=== PATIENT | male | born 1940 | race Caucasian/White ===

== ENCOUNTER 2020-05-19 06:57 | Emergency (ER) | payer MEDICARE, OTHER, SELFPAY ==
[2020-05-19] VITALS (28 sets, daily range): BP systolic 107–230; BP diastolic 54–94; PULSE 41–53; RESP 12–26; TEMP 36.6; O2SAT 92–99; BMI 26.4
--- NOTE | 2020-05-19 07:03 | DI.RAD.S_ITS ---
PROCEDURE: XR CHEST 1V INDICATIONS: chest pain TECHNIQUE: One view of the chest was acquired. COMPARISON: [facility], CR, XR CHEST 1 VIEW, 02/22/2019, 19:25. FINDINGS: Surgical changes and devices: None. 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 Lungs are otherwise clear without focal consolidation. No pleural effusions or pneumothorax. Mediastinum: Mediastinal contours appear normal. Heart size is normal. Bones and chest wall: No suspicious bony lesions. Overlying soft tissues appear unremarkable. IMPRESSION: Chest without acute cardiopulmonary abnormalities. No focal consolidations. 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 Dictated by: Dioni Velasco M.D. on 05/19/2020 at 7:47 Approved by: Dioni Velasco M.D. on 05/19/2020 at 7:52
[2020-05-19 07:12] LABS: Add Manual Diff / Slide Review NO; Basophils Absolute Auto 0 /uL (0-100); Basophils Percent Auto 0.3 % (0-2); Eosinophils Absolute Auto 0 /uL (0-450); Eosinophils Percent Auto 0.2 % (2-4); Hematocrit 39.4 % (41-53); Hemoglobin 13.1 g/dL (13.5-17.5); INR 1.3 (0.9-1.3); Lymphocytes Absolute Auto 1400 /uL (1100-4500); Lymphocytes Percent Auto 38.5 % (25-40); Mean Corpuscular HGB Conc 33.3 % (30-36); Mean Corpuscular Hemoglobin 29.2 PG (26-34); Mean Corpuscular Volume 87.7 fL (80-100); Monocytes Absolute Auto 1000 /uL (0-900); Monocytes Percent Auto 25.8 % (3-14); Neutrophils Absolute Auto 1300 /uL (1500-7000); Neutrophils Percent Auto 35.2 % (50-75); Platelet Count 191 X10^3/uL (150-400); Prothrombin Time 14.8 SECONDS (10.1-12.7); Red Blood Cell Count 4.49 X10^6/uL (4.5-5.9); Red Cell Distribution Width 14.7 % (11.6-14.8); White Blood Cell Count 3.7 X10^3/uL (4.5-11.0)
--- NOTE | 2020-05-19 07:12 | ED.CHESTPAIN ---
HPI - Chest Pain General Chief Complaint: Chest Pain Stated Complaint: Chest pain Time Seen by Provider: 05/19/20 06:58 Source: patient and EMS Mode of arrival: EMS Limitations: no limitations History of Present Illness HPI narrative: Patient is an 80-year-old male with history of coronary artery disease and hypertension who presents sharp left arm pain and chest pain. He says his arm will come up from his sleep around 3:00 a.m. it was quite intense than started radiating to his chest. He took nitro with EMS which helped his pain. He denies any shortness of breath no weakness. His most recent stent was in October 2019 in [facility]. he presented with shortness of breath and he could not see. MD complaint: chest pain Duration: constant and improved Onset: during rest Pain location: left chest Severity: moderate Quality: aching Relieving factors: nitroglycerin Related Data Home Medications Medication Instructions Recorded Confirmed aspirin [Adult Low Dose Aspirin] 81 mg PO DAILY 05/19/20 05/19/20 carvedilol 6.25 mg PO DAILY 05/19/20 05/19/20 clonidine HCl 0.3 mg PO Q8HR 05/19/20 05/19/20 ezetimibe 10 mg PO TID 05/19/20 05/19/20 famotidine 20 mg PO DAILY 05/19/20 05/19/20 hydralazine 25 mg PO PRN PRN 05/19/20 05/19/20 nitroglycerin [Nitrostat] 0.4 mg SUBLINGUAL PRN PRN 05/19/20 05/19/20 sotalol 80 mg PO BID 05/19/20 05/19/20 spironolactone 25 mg PO BID 05/19/20 05/19/20 tramadol 50 mg PO Q6H PRN 05/19/20 05/19/20 Allergies Allergy/AdvReac Type Severity Reaction Status Date / Time amlodipine Allergy Verified 05/19/20 10:30 atorvastatin Allergy Verified 05/19/20 10:30 clopidogrel Allergy Verified 05/19/20 10:30 lisinopril Allergy Verified 05/19/20 10:30 simvastatin Allergy Verified 05/19/20 10:30 Review of Systems Review of Systems Narrative: GENERAL: Denies chills, fatigue, malaise, fever, sweats, travel HEENT: Denies sinus pain, ear pain, sore throat, difficulty swallowing, neck pain RESPIRATORY: Denies dyspnea, cough, wheezing, hemoptysis, sputum. CARDIOVASCULAR: See HPI GASTROINTESTINAL: Denies nausea, vomiting, abdominal pain, diarrhea, constipation, melena. : Denies dysuria, frequency, incontinence, hematuria, urinary retention, flank pain. MUSCULOSKELETAL: Denies weakness, joint pain, or bony pain SKIN: No rash, no erythema, no pruritus NEUROLOGIC: Denies weakness, dizziness, headache, numbness, change in speech, confusion PSYCHIATRIC: No concerning psychosocial issues. 12 point review of systems is negative except for those stated above and HPI Patient History Medical History Coronary artery disease (Acute) Hypertension (Acute) Social History Smoking Status: Never smoker Exam Initial Vital Signs Initial Vital Signs: Vital Signs Temperature 97.9 F 05/19/20 07:07 Pulse Rate 50 L 05/19/20 07:07 Respiratory Rate 17 05/19/20 07:07 Blood Pressure 224/93 H 05/19/20 07:07 Pulse Oximetry 98 05/19/20 07:07 GENERAL: Alert alert pleasant elderly male and in no acute distress. HEENT: Head atraumatic,EOMI, pupils reactive, face symmetric, moist mucous membranes CARDIOVASCULAR: Regular rate and rhythm without murmurs, rubs or gallops. RESPIRATORY: Breath sounds equal bilaterally, no wheezes rales or rhonchi. ABDOMEN: Soft, nontender. Normoactive bowel sounds all 4 quadrants. No guarding or rebound. EXTREMITIES: Normal range of motion, no clubbing or edema. Neurovascularly intact NEUROLOGICAL: Alert and oriented x4.Normal gait and speech. Dyeing Machine Tender strength equal bilaterally SKIN: Warm, dry, no laceration, no petechiae, no rashes or lesions. Scores ABCD2 Citation: Lancet. 2006Oct 06;369(8057):942-48. Validation and refinement of scores to predict very early stroke risk after transient ischaemic attack. Shalom SC1, Maulik PM, [place], Javid MF, Jerilyn JS, [place], Gustavo S. Course Orders Ordered: ED Orders 05/19/20 07:03 XR chest 1V Stat EKG-12 Lead Stat 05/19/20 07:08 Complete Blood Count AUTO DIFF Stat Comprehensive Metabolic Panel Stat Lipase Stat NT-proBNP (BNP-Adult 18+) Stat Partial Thromboplastin Time Stat Prothrombin Time INR Stat Troponin & CK Cardiac Panel Stat 05/19/20 09:46 Troponin I Stat 05/19/20 10:14 COVID19 -ED/INPAT/OR/L&D Stat 05/19/20 10:44 EKG-12 Lead Routine Discontinued Medications Aspirin (Aspirin Chew) 324 mg PO NOW ONE Stop: 05/19/20 07:04 Last Admin: 05/19/20 08:06 Dose: Not Given Documented by: SCANAPO Heparin Sodium (Porcine) (Heparin) 4,000 unit IV NOW ONE Stop: 05/19/20 09:22 Last Admin: 05/19/20 10:09 Dose: Not Given Documented by: SCANAPO Hydralazine HCl (Apresoline) 10 mg IV NOW ONE Stop: 05/19/20 10:45 Last Admin: 05/19/20 10:50 Dose: Not Given Documented by: SCANAPO Sodium Chloride (Normal Saline 0.9%) 1,000 mls @ 150 mls/hr IV CONT MOI Last Infusion: 05/19/20 12:50 Dose: 0 mls/hr Documented by: Admin: 05/19/20 07:33 Dose: 150 mls/hr Documented by: SCANAPO Heparin Sodium/Dextrose (Heparin Drip) 25,000 unit in 500 mls @ 18.942 mls/hr IV CONT MOI; Protocol Last Admin: 05/19/20 10:09 Dose: Not Given Documented by: SCANAPO Nitroglycerin (Nitroglycerin) 50 mg in 250 mls @ 1.5 mls/hr IV TITRATE MOI; Protocol Last Titration: 05/19/20 12:50 Dose: 0 mcg/min, 0 mls/hr Documented by: Titration: 05/19/20 11:50 Dose: 10 mcg/min, 3 mls/hr Documented by: Admin: 05/19/20 10:49 Dose: 5 mcg/min, 1.5 mls/hr Documented by: ADALIDAPO Nitroglycerin (Nitrostat) 0.4 mg SL [id number] PRN PRN Reason: Chest Pain Last Admin: 05/19/20 07:33 Dose: 0.4 mg Documented by: SCANAPO Consultations Consultation #1: Dr. Gomez, recommends transfer to higher level of care Time: 08:04 Consultation #2: Dr. Forde, cardiology at [facility] unable to look into patient's chart or provide any information Time: 09:13 Consultation #3: , recommends transferring the [facility] and heparin drip Time: 09:22 Additional Consultation(s): 10:00 Dr. Velez hospitalist at [facility] happily accept patient Vital Signs Vital signs: Vital Signs - 8 hr 05/19/20 07:07 05/19/20 07:08 05/19/20 07:30 Temperature 97.9 F Pulse Rate 50 L 50 L 47 L Respiratory Rate 17 22 17 Blood Pressure 224/93 H Pulse Oximetry 98 98 96 05/19/20 07:38 05/19/20 07:43 05/19/20 08:00 Temperature Pulse Rate 51 L 53 L 46 L Respiratory Rate 24 24 24 Blood Pressure 131/63 107/54 L Pulse Oximetry 96 95 96 05/19/20 08:01 05/19/20 08:30 05/19/20 08:31 Temperature Pulse Rate 46 L 45 L 44 L Respiratory Rate 25 H 14 12 Blood Pressure 151/68 H 141/64 H Pulse Oximetry 96 96 96 05/19/20 09:00 05/19/20 09:01 05/19/20 09:30 Temperature Pulse Rate 46 L 42 L 45 L Respiratory Rate 23 18 14 Blood Pressure 191/78 H Pulse Oximetry 96 96 97 05/19/20 09:31 05/19/20 10:00 05/19/20 10:01 Temperature Pulse Rate 43 L 42 L 43 L Respiratory Rate 23 17 19 Blood Pressure 206/90 H 203/86 H Pulse Oximetry 97 98 98 05/19/20 10:30 05/19/20 10:42 05/19/20 11:00 Temperature Pulse Rate 41 L 44 L 51 L Respiratory Rate 20 20 21 Blood Pressure 215/90 H Pulse Oximetry 98 97 92 05/19/20 11:01 05/19/20 11:30 05/19/20 11:31 Temperature Pulse Rate 47 L 43 L 47 L Respiratory Rate 18 22 20 Blood Pressure 223/94 H 208/86 H Pulse Oximetry 92 98 98 05/19/20 11:40 05/19/20 11:50 05/19/20 12:00 Temperature Pulse Rate 44 L 45 L 46 L Respiratory Rate 26 H 15 18 Blood Pressure 221/87 H 230/92 H Pulse Oximetry 99 96 97 05/19/20 12:01 05/19/20 12:09 05/19/20 12:30 Temperature Pulse Rate 45 L 45 L 45 L Respiratory Rate 18 16 24 Blood Pressure 196/88 H 203/87 H Pulse Oximetry 97 97 97 05/19/20 12:31 Temperature Pulse Rate 46 L Respiratory Rate 20 Blood Pressure 192/84 H Pulse Oximetry 97 MDM - Chest Pain Lab Data Attestation: I reviewed the patient's lab results. Result diagrams: 05/19/20 07:08 05/19/20 07:08 Labs: Lab Results 05/19/20 05/19/20 05/19/20 Range/Units 07:08 07:08 07:08 WBC 3.7 L (4.5-11.0) X10^3/uL RBC 4.49 L (4.5-5.9) X10^6/uL Hgb 13.1 L (13.5-17.5) g/dL Hct 39.4 L (41-53) % MCV 87.7 (80-100) fL MCH 29.2 (26-34) PG MCHC 33.3 (30-36) % RDW 14.7 (11.6-14.8) % Plt Count 191 (150-400) X10^3/uL Neut % (Auto) 35.2 L (50-75) % Lymph % (Auto) 38.5 (25-40) % [place] % (Auto) 25.8 H (3-14) % Eos % (Auto) 0.2 L (2-4) % Baso % (Auto) 0.3 (0-2) % Neut # (Auto) 1300 L (3054-1208) /uL Lymph # (Auto) 1400 (9823-4320) /uL [place] # (Auto) 1000 H (0-900) /uL Eos # (Auto) 0 (0-450) /uL Baso # (Auto) 0 (0-100) /uL PT 14.8 H (10.1-12.7) SECONDS INR 1.3 (0.9-1.3) APTT 41 H (26.4-36.2) SECONDS Sodium 139 (137-145) mmol/L Potassium 4.4 (3.4-5.1) mmol/L Chloride 102 (98-107) mmol/L Carbon Dioxide 31 (22-32) mmol/L BUN 16 (9-20) mg/dL Creatinine 0.80 (0.66-1.25) mg/dL Estimated GFR > 60.0 (>60) mL/min BUN/Creatinine Ratio 20.0 (6-22) Glucose 105 (80-110) mg/dL Calcium 9.8 (8.4-10.2) mg/dL Total Bilirubin 0.5 (0.2-1.3) mg/dL AST 27 (17-59) IU/L ALT 10 (<50) IU/L Alkaline Phosphatase 85 (38-126) U/L Total Creatine Kinase 39 L (55-170) U/L CK-MB (CK-2) TNP CK-MB (CK-2) Rel Index TNP Troponin I < 0.012 (0.01-0.034) ng/mL NT-Pro-B Natriuret Pep 175 (<450) pg/mL Total Protein 8.0 (6.3-8.2) g/dL Albumin 4.4 (3.5-5.0) g/dL Globulin 3.6 (1.7-4.1) g/dL Albumin/Globulin Ratio 1.2 (1.0-2.8) Lipase 86 (23-300) U/L COVID-19 PCR (Negative) 05/19/20 05/19/20 Range/Units 09:46 10:14 WBC (4.5-11.0) X10^3/uL RBC (4.5-5.9) X10^6/uL Hgb (13.5-17.5) g/dL Hct (41-53) % MCV (80-100) fL MCH (26-34) PG MCHC (30-36) % RDW (11.6-14.8) % Plt Count (150-400) X10^3/uL Neut % (Auto) (50-75) % Lymph % (Auto) (25-40) % [place] % (Auto) (3-14) % Eos % (Auto) (2-4) % Baso % (Auto) (0-2) % Neut # (Auto) (0322-1370) /uL Lymph # (Auto) (6120-6262) /uL [place] # (Auto) (0-900) /uL Eos # (Auto) (0-450) /uL Baso # (Auto) (0-100) /uL PT (10.1-12.7) SECONDS INR (0.9-1.3) APTT (26.4-36.2) SECONDS Sodium (137-145) mmol/L Potassium (3.4-5.1) mmol/L Chloride (98-107) mmol/L Carbon Dioxide (22-32) mmol/L BUN (9-20) mg/dL Creatinine (0.66-1.25) mg/dL Estimated GFR (>60) mL/min BUN/Creatinine Ratio (6-22) Glucose (80-110) mg/dL Calcium (8.4-10.2) mg/dL Total Bilirubin (0.2-1.3) mg/dL AST (17-59) IU/L ALT (<50) IU/L Alkaline Phosphatase (38-126) U/L Total Creatine Kinase (55-170) U/L CK-MB (CK-2) CK-MB (CK-2) Rel Index Troponin I < 0.012 (0.01-0.034) ng/mL NT-Pro-B Natriuret Pep (<450) pg/mL Total Protein (6.3-8.2) g/dL Albumin (3.5-5.0) g/dL Globulin (1.7-4.1) g/dL Albumin/Globulin Ratio (1.0-2.8) Lipase (23-300) U/L COVID-19 PCR Negative (Negative) Imaging Data Chest x-ray: Radiologist's Impression: PROCEDURE: XR CHEST 1V INDICATIONS: chest pain TECHNIQUE: One view of the chest was acquired. COMPARISON: [facility], , XR CHEST 1 VIEW, 02/22/2019, 19:25. FINDINGS: Surgical changes and devices: None. 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 Lungs are otherwise clear without focal consolidation. No pleural effusions or pneumothorax. Mediastinum: Mediastinal contours appear normal. Heart size is normal. Bones and chest wall: No suspicious bony lesions. Overlying soft tissues appear unremarkable. IMPRESSION: Chest without acute cardiopulmonary abnormalities. No focal consolidations. 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 Dictated by: Dioni Velasco M.D. on 05/19/2020 at 7:47 ECG Data Attestation: I personally reviewed and interpreted this ECG as follows: Prior ECG tracings: not available for review Interpretation: Normal sinus rhythm rate 54 p.r. interval 162 QRS [address] changes MDM Narrative Medical decision making narrative: Patient is chest pain-free after nitroglycerin blood pressure much better controlled. Patient's pain started at rest did not resolve until he had at least 3 doses of nitroglycerin. Symptoms consistent with unstable angina. He took Eliquis this morning no heparin drip needed. Patient arm pain returns blood pressure also seems to be quite elevated he is requesting to take hydralazine which he takes on a as needed noticed. However with his increased pain will start him on a nitroglycerin drip Discharge Plan Departure Patient Disposition: [facility] Clinical Impression: Unstable angina pectoris Discharge Date/Time: 05/19/20 12:51 Prescriptions: No Action clonidine HCl 0.3 mg tablet 0.3 mg PO Q8HR RF: 0 sotalol 80 mg tablet 80 mg PO BID RF: 0 spironolactone 25 mg tablet 25 mg PO BID RF: 0 ezetimibe 10 mg tablet 10 mg PO TID RF: 0 carvedilol 6.25 mg Tablet 6.25 mg PO DAILY RF: 0 famotidine 20 mg Tablet 20 mg PO DAILY RF: 0 tramadol 50 mg Tablet 50 mg PO Q6H PRN (Reason: Pain (Scale Score 1-3)) RF: 0 aspirin [Adult Low Dose Aspirin] 81 mg Tablet,Delayed Release (Dr/Ec) 81 mg PO DAILY RF: 0 nitroglycerin [Nitrostat] 0.4 mg Tablet, Sublingual 0.4 mg SUBLINGUAL PRN PRN (Reason: Chest Pain) RF: 0 hydralazine 25 mg PO PRN PRN (Reason: Blood Pressure) RF: 0
[2020-05-19 07:15] LABS: PTT Partial Thromboplastin Tim 41 SECONDS (26.4-36.2)
[2020-05-19 07:17] LABS: Alanine Aminotransferase 10 IU/L (<50); Albumin 4.4 g/dL (3.5-5.0); Albumin Globulin Ratio 1.2 (1.0-2.8); Alkaline Phosphatase 85 U/L (38-126); Aspartate Aminotransferase 27 IU/L (17-59); Bilirubin Total 0.5 mg/dL (0.2-1.3); Blood Urea Nitrogen 16 mg/dL (9-20); Calcium 9.8 mg/dL (8.4-10.2); Carbon Dioxide 31 mmol/L (22-32); Chloride 102 mmol/L (98-107); Creatine Kinase 39 U/L (55-170); Estimated Glomerular Filt Rate > 60.0 mL/min (>60); Globulin 3.6 g/dL (1.7-4.1); Glucose 105 mg/dL (80-110); HEMOLYSIS < 15 (0-50); Lipase 86 U/L (23-300); Potassium 4.4 mmol/L (3.4-5.1); Sodium 139 mmol/L (137-145)
[2020-05-19 07:28] LABS: NT-proBNP (BNP-Adult 18+) 175 pg/mL (<450); Troponin I < 0.012 ng/mL (0.01-0.034)
[2020-05-19] MEDS: SODIUM CHLORIDE 0.9% 1,000 ML 150 ML IV (07:33)
[2020-05-19] MEDS: NITROGLYCERIN 0.4 MG SL TAB SL (07:33)
--- NOTE | 2020-05-19 07:56 | PC.NURSE ---
pt c/o waking at 0300 with left arm pain/aching, pt then got out of bed about 0600 and began having a sharp intense chest pain, and sob. he took one of his own nitro which began to improve the chest pain. medics arrived and gave him another nitro, which resolved his chest pain, and lowered his arm pain. currently pt continues to have left arm aching.
[2020-05-19 10:16] LABS: Troponin I < 0.012 ng/mL (0.01-0.034)
[2020-05-19 10:38] LABS: COVID19 -Nasal RAPID Negative (Negative)
[2020-05-19] MEDS: NITROGLYCERIN 50 MG/250 ML INFUS..BTL IV (10:49)
== END 2020-05-19 12:51 | disposition short-term general hospital (02) ==
PROVIDERS: Emergency Provider Emergency Medicine
DX: I25.110 Atherosclerotic heart disease of native coronary artery with unstable angina pectoris (principal); I10 Essential (primary) hypertension; M79.602 Pain in left arm
CPT/HCPCS: 36415; 71045; 80053; 82550; 83690; 83880; 84484; 85025; 85610; 85730; 87635; 93005; 96361; 96365; 96366; 99284